=== PATIENT | male | born 1990 ===

== ENCOUNTER 2018-02-12 01:43 | Emergency (ER) | payer OTHER ==
--- NOTE | 2018-02-12 01:47 | C.PDOC ---
History Of Present Illness Patient presents to the ER via EMS after sleeping by the elevator at an apartment building. Patient reports he was at the bar drinking tonight. Denies suicidal ideation or homicidal ideation. Time Seen by Provider: 02/12/18 01:47 Chief Complaint (Nursing): Substance Abuse History Per: Patient History/Exam Limitations: no limitations Onset/Duration Of Symptoms: Hrs Current Symptoms Are (Timing): Still Present Suicide/Self Injury Attempted (Context): None Modifying Factor(s): Alcohol Severity: None Pain Scale Rating Of: 0 Associated Symptoms: denies: Depression, Suicidal Thoughts, Other (Homicidal ideation) Involuntary Hold By: None Recent travel outside of the [place]: No Past Medical History Reviewed: Historical Data, Nursing Documentation, Vital Signs Vital Signs: Last Vital Signs Temp 98 F 02/12/18 01:54 Pulse 79 02/12/18 01:54 Resp 16 02/12/18 01:54 BP 102/64 02/12/18 01:54 Pulse Ox 98 02/12/18 01:54 Family History: States: No Known Family Hx Review Of Systems Constitutional: Negative for: Fever, Chills Gastrointestinal: Negative for: Nausea, Vomiting, Diarrhea Psych: Negative for: Suicidal ideation, Other (Homicidal ideation) Physical Exam - Physical Exam Appears: Non-toxic, Other (ETOH on breath) Skin: Warm, Dry Head: Normacephalic Oral Mucosa: Moist Chest: Symmetrical, No Tenderness Cardiovascular: Rhythm Regular Respiratory: No Rales, No Rhonchi, No Wheezing Gastrointestinal/Abdominal: Soft, No Tenderness Neurological/Psych: Oriented x3 ED Course And Treatment O2 Sat by Pulse Oximetry: 98 Pulse Ox Interpretation: Normal Disposition Counseled Patient/Family Regarding: Studies Performed, Diagnosis, Need For Followup - Disposition Referrals: [facility] [Outside] Disposition: HOME/ ROUTINE Disposition Time: 01:47 Condition: FAIR Instructions: Alcohol Abuse and Alcoholism (DC) Forms: [facility] (Lao) - Clinical Impression Clinical Impression: Alcohol intoxication - Scribe Statement The provider has reviewed the documentation as recorded by the Scribe Dominic Lozoya All medical record entries made by the Scribe were at my direction and personally dictated by me. I have reviewed the chart and agree that the record accurately reflects my personal performance of the history, physical exam, medical decision making, and the department course for this patient. I have also personally directed, reviewed, and agree with the discharge instructions and disposition.
[2018-02-12 02:00] VITALS: BP 102/64; PULSE 79; RESP 16; TEMP 98; O2SAT 98
== END 2018-02-12 03:24 | disposition home or self-care (01) ==
LOC: C.ER 01:43
DX: F10.129 Alcohol abuse with intoxication, unspecified (principal)